=== PATIENT | female | born 1950 ===

== ENCOUNTER 2024-07-07 11:28 | Emergency (ER) | payer OTHER, SELFPAY ==
[2024-07-07 11:32] VITALS: BP 140/73
--- NOTE | 2024-07-07 13:22 | ED.GENMED ---
History of Present Illness
General
Chief Complaint: Fall
Time Seen by Provider: 07/07/24 13:14
History of Present Illness
History of Present Illness:
73-year-old female presents the emergency department with her daughter for evaluation of right hip pain after a fall. She slid off the couch 2 days ago, there was no head strike. She is noted to have ecchymosis to the right lateral hip. She was
able to ambulate yesterday however today it became increasingly difficult.
Review of Systems
Review of Systems
Allergies reviewed?: Yes
All Other Systems: ROS reviewed and negative except as documented in HPI and ROS
Phy Exam
Physical Exam
Physical Exam:
GEN: Well appearing, NAD, WDWN
HEENT: Oral mucosa moist, no scleral icterus
Cardiac: Regular rate
Lung: No respiratory distress, no tachypnea
MSK: Mild ecchymosis to the right lateral hip, bilateral hip range of motion normal in all velez
Skin: Good color, no pallor or jaundice, no rashes
Neuro: AO x3, moves all extremities freely
Psych: Calm, cooperative
Course
Orders/Labs/Results
Orders:
Orders
07/07/24 13:22
CT Pelvis W/o Iv Contrast Urgent
Comment:
Reason For Exam: R gluteal injury
Vital Signs
Initial and Last Documented VS:
Initial Vital Signs
Temp Pulse Resp BP Pulse Ox
98.3 F 75 20 140/73 92
07/07/24 11:32 07/07/24 11:32 07/07/24 11:32 07/07/24 11:32 07/07/24 11:32
Last Documented Vital Signs
Temp Pulse Resp BP Pulse Ox
98.3 F 71 16 139/77 96
07/07/24 11:32 07/07/24 16:45 07/07/24 16:45 07/07/24 16:45 07/07/24 16:45
MDM/Problems Addressed
MDM/Problems Addressed:
CT obtained which showed no evidence for pelvic or hip fractures. Patient and daughter reassured
*Critical Care Note
Total Time (30-74mins, 75-104mins- exclusive of procedures): Not Applicable
ED Attending Note
-
Portions of this chart may have been created with voice recognition software.� Occasional wrong word or��sound alike� substitutions may have occurred due to the inherent limitations of voice recognition software.
Discharge Plan
Departure
Patient Disposition: Home (Routine Discharge)
Date of Disposition: 07/07/24
Time of Disposition: 16:43
Patient with high blood pressure during this ER visit?: No
Discharge Problem:
Hematoma of right hip
Instructions: Contusion (DC)
Referrals:
Austin Cruz MD [Family Provider] -
Interventions
Interventions:
*Risk Screen - Suicide Last Done: 07/07/24 14:55
*General Assessment Last Done: 07/07/24 11:32
*Neglect/Abuse Screening Last Done: 07/07/24 14:55
ED- Fall Risk Assessment Last Done: 07/07/24 14:55
*ED COVID-19 Vaccine History Last Done: 07/07/24 14:55
*Nursing Disposition Last Done: 07/07/24 16:45
ED-Musculoskeletal Assessment Last Done: 07/07/24 14:55
ED- Neurological Assessment Last Done: 07/07/24 14:55
ED-Skin Assessment Last Done: 07/07/24 14:55
Discharge Date and Time
Discharge Date/Time: 07/07/24 16:45
Print Language: [id number]
[2024-07-07 16:45] VITALS: BP 139/77
== END 2024-07-07 16:45 | disposition home or self-care (01) ==
LOC: EMR 11:28
PROVIDERS: EMERGENCY PHYSICIAN Emergency Medicine; FAMILY PHYSICIAN Family Medicine
DX: S70.01XA Contusion of right hip, initial encounter (principal); W19.XXXA Unspecified fall, initial encounter; F03.90 Unspecified dementia, unspecified severity, without behavioral disturbance, psychotic disturbance, mood disturbance, and anxiety
CPT/HCPCS: 99284; 72192